=== PATIENT | female | born 2005 | race Caucasian/White ===

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

== ENCOUNTER → 2023-11-27 | Outpatient (REF) | payer BC ==
[2023-11-27 16:53] LABS: ALBUMIN 4.4 G/DL (3.2-5.2); ALKALINE PHOSPHATASE 72 U/L (46-116); ALT/SGPT 20 U/L (7.0-40); AST/SGOT 13 U/L (<34); BILIRUBIN,TOTAL 0.7 MG/DL (0.3-1.2); BLOOD UREA NITROGEN 11 MG/DL (9-23); CARBON DIOXIDE LEVEL 21 MMOL/L (20-31); CHLORIDE LEVEL 108 MMOL/L (98-107); GLUCOSE, FASTING 89 MG/DL (60-100); POTASSIUM SERUM 3.9 MMOL/L (3.5-5.1); SODIUM LEVEL 138 MMOL/L (136-145); TOTAL PROTEIN 7.4 G/DL (5.7-8.2)
[2023-11-27 16:55] LABS: THYROID STIMULATING HORMONE 1.078 uIU/ML (0.48-4.17); TOTAL 25(OH) VITAMIN D 31.8 NG/ML (20.0-100.0)
== END ==
LOC: M LAB REF 16:26
PROVIDERS: ATTEND Physician Assistant
DX: E55.9 Vitamin D deficiency, unspecified (principal); R10.2 Pelvic and perineal pain